=== PATIENT | female | born 1965 | race Caucasian/White ===

== ENCOUNTER 2017-07-12 19:50 | Emergency (ER) | payer BC ==
[2017-07-12] MEDS ORDERED: Albuterol/Ipratropium 3.0-0.5 MG/3 ML Neb Soln NEB ONE (19:54)
[2017-07-12] MEDS ORDERED: Sodium Chloride 0.9% 1,000 ML IV ONE (19:57)
--- NOTE | 2017-07-12 19:57 | EDM.PDOC ---
ED HPI GENERAL MEDICAL PROBLEM - General Stated Complaint: CHEST PAIN/TROUBLE BREATHING Time Seen by Provider: 07/12/17 19:51 Source of Information: Reports: Patient History Limitations: Reports: No Limitations - History of Present Illness INITIAL COMMENTS - FREE TEXT/NARRATIVE: HISTORY AND PHYSICAL: History of present illness: Patient is a 51-year-old female who presents to the emergency room with complaints of chest pain and shortness of breath. She states approximately 3 days ago she was working with [employer] while performing some gardening. Since that time she has had mild soft breath. Today after supper she noticed some heaviness and pressure in her mid chest. Denies any fever, chills, cough, diaphoresis. Denies any abdominal pain, nausea, vomiting, diarrhea or constipation. No previous cardiovascular or respiratory illnesses. 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 Review of systems: As per history of present illness and below otherwise all systems reviewed and negative. Past medical history: As per history of present illness and as reviewed below otherwise noncontributory. Surgical history: As per history of present illness and as reviewed below otherwise noncontributory. Social history: No reported history of drug or alcohol abuse. Family history: As per history of present illness and as reviewed below otherwise noncontributory. Physical exam: General: Well-developed and well-nourished 51-year-old female. Alert and oriented. Nontoxic appearing and in no acute distress. HEENT: Atraumatic, normocephalic, pupils equal and reactive bilaterally, negative for conjunctival pallor or scleral icterus, mucous membranes moist, throat clear, neck supple, nontender, trachea midline. No drooling or trismus noted. No meningeal signs Lungs: Fine expiratory wheezing noted to left posterior base otherwise clear to auscultation, breath sounds equal bilaterally, chest nontender. Heart: S1S2, regular rate and rhythm without overt murmur Abdomen: Soft, nondistended, nontender. Negative for masses or hepatosplenomegaly. Negative for costovertebral tenderness. Pelvis: Stable nontender. Genitourinary: Deferred. Rectal: Deferred. Skin: Intact, warm, dry. No lesions or rashes noted. Extremities: Atraumatic, negative for cords or calf pain. Neurovascular unremarkable. Neuro: Awake, alert, oriented. Cranial nerves II through XII unremarkable. Cerebellum unremarkable. Motor and sensory unremarkable throughout. Exam nonfocal. Notes: Chest x-ray is within normal limits. Lab work is unremarkable. States she did feel some relief with the DuoNeb. Last admission to rule out SD due to the "chest pressure" that she was describing. She is convinced that there is no heart involvement and believes that is more of a lung/respiratory issue. She declines admission. We'll give her Solu-Medrol prior to discharge. Treat her with Medrol Dosepak and Z-Josiah. We discussed signs and symptoms that would prompt her to return to the emergency room. She voices understanding and is agreeable to plan of care. Denies any further questions at this time. Diagnostics: CBC, CMP, troponin, EKG, one view chest Therapeutics: DuoNeb, normal saline Impression: Bronchitis Chest pain, nonspecific Plan: 1. Please take the antibiotic and steroid pack as we discussed. 2. Tylenol and/or ibuprofen as needed for pain management. 3. As we discussed, if your symptoms return or new symptoms develop least return to the emergency room. 4. Follow-up with your primary care provider in the next 1-2 days. Return to the ED as needed and as discussed. Definitive disposition and diagnosis as appropriate pending reevaluation and review of above. Duration: Day(s): Location: Reports: Chest - Related Data Allergies Allergy/AdvReac Type Severity Reaction Status Date / Time No Known Allergies Allergy Verified 07/12/17 20:09 Home Meds: Home Meds Lisinopril/Hydrochlorothiazide [Lisinopril-HCTZ 10-12.5 MG] 1 tab PO DAILY 07/12 [History] Progesterone,Micronized [Prometrium] 100 mg PO DAILY 07/12/17 [History] ED ROS GENERAL - Review of Systems Review Of Systems: ROS reveals no pertinent complaints other than HPI. ED EXAM, GENERAL - Physical Exam Exam: See Below (See dictation) Course - Vital Signs Last Recorded V/S: Last Vital Signs Temp 98.2 F 07/12/17 20:04 Pulse 89 07/12/17 20:04 Resp 16 07/12/17 20:04 BP 144/83 H 07/12/17 20:04 Pulse Ox 95 07/12/17 20:04 - Orders/Labs/Meds Orders: Active Orders 24 hr Category Date Time Status EKG Documentation Completion [RC] STAT Care 07/12/17 19:51 Active RT Aerosol Therapy [RC] ASDIRECTED Care 07/12/17 19:54 Active Chest 1V Frontal [CR] Stat Exams 07/12/17 19:51 Taken Sodium Chloride 0.9% [Normal Saline] 1,000 ml Med 07/12/17 19:57 Active IV STAT methylPREDNISolone Sod Succ [Solu-MEDROL] Med 07/12/17 20:44 Once 125 mg IVPUSH ONETIME ONE Medication Orders Sodium Chloride (Normal Saline) 1,000 mls @ 999 mls/hr IV STAT ONE Stop: 07/12/17 20:57 Last Admin: 07/12/17 20:30 Dose: 999 mls/hr Methylprednisolone Sodium Succinate (Solu-Medrol) 125 mg IVPUSH ONETIME ONE Stop: 07/12/17 20:45 Labs: Laboratory Tests 07/12/17 07/12/17 Range/Units 20:05 20:05 WBC 7.74 (4.0-11.0) K/uL RBC 4.59 (4.30-5.90) M/uL Hgb 12.2 (12.0-16.0) g/dL Hct 36.8 (36.0-46.0) % MCV 80.2 (80.0-98.0) fL MCH 26.6 L (27.0-32.0) pg MCHC 33.2 (31.0-37.0) g/dL RDW Std Deviation 50.0 (28.0-62.0) fl RDW Coeff of Dru 17 H (11.0-15.0) % Plt Count 302 (150-400) K/uL MPV 9.80 (7.40-12.00) fL Neut % (Auto) 55.2 (48.0-80.0) % Lymph % (Auto) 32.2 (16.0-40.0) % Bledsoe % (Auto) 10.3 (0.0-15.0) % Eos % (Auto) 1.8 (0.0-7.0) % Baso % (Auto) 0.5 (0.0-1.5) % Neut # (Auto) 4.3 (1.4-5.7) K/uL Lymph # (Auto) 2.5 H (0.6-2.4) K/uL Bledsoe # (Auto) 0.8 (0.0-0.8) K/uL Eos # (Auto) 0.1 (0.0-0.7) K/uL Baso # (Auto) 0.0 (0.0-0.1) K/uL Nucleated RBC % 0.0 /100WBC Nucleated RBCs # 0 K/uL Sodium 136 (136-145) mmol/L Potassium 3.9 (3.5-5.1) mmol/L Chloride 100 (98-107) mmol/L Carbon Dioxide 30.0 (21.0-32.0) mmol/L BUN 19 H (7.0-18.0) mg/dL Creatinine 0.8 (0.6-1.0) mg/dL Est Cr Clr Drug Dosing 84.99 mL/min Estimated GFR (MDRD) > 60.0 ml/min Glucose 104 (74-106) mg/dL Calcium 9.3 (8.5-10.1) mg/dL Total Bilirubin 0.4 (0.2-1.0) mg/dL AST 22 (15-37) IU/L ALT 24 (14-63) IU/L Alkaline Phosphatase 56 (46-116) U/L Troponin I < 0.050 (0.000-0.056) ng/mL Total Protein 8.3 H (6.4-8.2) g/dL Albumin 4.0 (3.4-5.0) g/dL Globulin 4.3 H (2.0-3.5) g/dL Albumin/Globulin Ratio 0.9 L (1.3-2.8) Meds: Medications Generic Name Dose Route Start Last Admin Trade Name Freq PRN Reason Stop Dose Admin Sodium Chloride 1,000 mls @ 999 mls/hr 07/12/17 19:57 07/12/17 20:30 Normal Saline IV 07/12/17 20:57 999 mls/hr STAT ONE Administration Methylprednisolone Sodium Succinate 125 mg 07/12/17 20:44 Solu-Medrol IVPUSH 07/12/17 20:45 ONETIME ONE Discontinued Medications Generic Name Dose Route Start Last Admin Trade Name Freq PRN Reason Stop Dose Admin Albuterol/Ipratropium 3 ml 07/12/17 19:54 07/12/17 20:25 Duoneb 3.0-0.5 Mg/3 Ml NEB 07/12/17 19:55 3 ml ONETIME ONE Administration Departure - Departure Time of Disposition: 20:47 Disposition: Home, Self-Care 01 Clinical Impression: Nonspecific chest pain, Bronchitis Referrals: PCP,None [Primary Care Provider] - Additional Instructions: The following information is given to patients seen in the emergency department who are being discharged to home. This information is to outline your options for follow-up care. We provide all patients seen in our emergency department with a follow-up referral. The need for follow-up, as well as the timing and circumstances, are variable depending upon the specifics of your emergency department visit. If you don't have a primary care physician on staff, we will provide you with a referral. We always advise you to contact your personal physician following an emergency department visit to inform them of the circumstance of the visit and for follow-up with them and/or the need for any referrals to a consulting specialist. The emergency department will also refer you to a specialist when appropriate. This referral assures that you have the opportunity for follow-up care with a specialist. All of these measure are taken in an effort to provide you with optimal care, which includes your follow-up. Under all circumstances we always encourage you to contact your private physician who remains a resource for coordinating your care. When calling for follow-up care, please make the office aware that this follow-up is from your recent emergency room visit. If for any reason you are refused follow-up, please contact the [facility] Emergency Department at and asked to speak to the emergency department charge nurse. [facility] [address] [place] [id number] 1. Please take the antibiotic and steroid pack as we discussed. 2. Tylenol and/or ibuprofen as needed for pain management. 3. As we discussed, if your symptoms return or new symptoms develop least return to the emergency room. 4. Follow-up with your primary care provider in the next 1-2 days. Return to the ED as needed and as discussed. - My Orders Last 24 Hours: My Active Orders 07/12/17 19:51 EKG Documentation Completion [RC] STAT Chest 1V Frontal [CR] Stat 07/12/17 19:54 RT Aerosol Therapy [RC] ASDIRECTED 07/12/17 19:57 Sodium Chloride 0.9% [Normal Saline] 1,000 ml IV STAT 07/12/17 20:44 methylPREDNISolone Sod Succ [Solu-MEDROL] 125 mg IVPUSH ONETIME ONE - Assessment/Plan Last 24 Hours: My Active Orders 07/12/17 19:51 EKG Documentation Completion [RC] STAT Chest 1V Frontal [CR] Stat 07/12/17 19:54 RT Aerosol Therapy [RC] ASDIRECTED 07/12/17 19:57 Sodium Chloride 0.9% [Normal Saline] 1,000 ml IV STAT 07/12/17 20:44 methylPREDNISolone Sod Succ [Solu-MEDROL] 125 mg IVPUSH ONETIME ONE
[2017-07-12 20:33] LABS: CHLORIDE,CL 100 mmol/L (98-107); SODIUM,NA 136 mmol/L (136-145)
[2017-07-12] MEDS ORDERED: methylPREDNISolone Sodium Succinate 125 MG/2 ML SDV IVPUSH ONE (20:44)
--- NOTE | 2017-07-13 09:48 | CR ---
EXAM DATE: 07/12/17 PATIENT'S AGE: 51 Patient: MANISHA RUSSELL Facility: [place], [place] Site . Site : [id number] Study: XRay Chest [id number]/[id number] 8:17:33 PM Ordering Physician: Doctor Liz Final Report: HISTORY: Shortness of breath and cough. COMPARISON: None. FINDINGS: The lungs are clear. Costophrenic angles sharp. Heart size and pulmonary vascularity are within normal limits. Dictated by Hermila Castanon MD @ Jul 12 2017 8:23PM (Electronic Signature) Report Signed by Proxy. [facility]
== END 2017-07-12 20:55 | disposition home or self-care (01) ==
LOC: MW.ED 19:50
DX: J40 Bronchitis, not specified as acute or chronic (principal); Z79.899 Other long term (current) drug therapy
CPT/HCPCS: 36415; 71045; 80053; 84484; 85025; 93005; 94640; 96374; 99285; J2930; J7040

== ENCOUNTER 2021-11-22 22:57 | Emergency (ER) | payer BC ==
[2021-11-22] MEDS ORDERED: Nitrofurantoin Monohydrate/Macrocrystalline 100 MG Cap PO STA (23:39)
[2021-11-22] MEDS ORDERED: Phenazopyridine 200 MG Tab PO ONE (23:43)
== END 2021-11-23 00:05 | disposition home or self-care (01) ==
LOC: MW.ED 22:57
DX: N39.0 Urinary tract infection, site not specified (principal)
CPT/HCPCS: 81001; 87086; 99283; A9270

== ENCOUNTER 2022-04-24 19:34 | Emergency (ER) | payer BC ==
[2022-04-24] MEDS ORDERED: Sulfamethoxazole/Trimethoprim 800-160 MG Tab PO ONE (20:37)
== END 2022-04-24 21:08 | disposition home or self-care (01) ==
LOC: MW.ED 19:34
DX: N39.0 Urinary tract infection, site not specified (principal); Z79.82 Long term (current) use of aspirin; Z86.73 Personal history of transient ischemic attack (TIA), and cerebral infarction without residual deficits
CPT/HCPCS: 81001; 99283; A9270